=== PATIENT | female | born 1990 | race Caucasian/White ===

== ENCOUNTER 2021-05-21 13:33 | Emergency (ER) | payer OTHER ==
[2021-05-21 13:57] LABS: BASOPHIL 0.7 % (0-2); EOSINOPHIL 0.8 % (0-5); HCT 39.6 % (37.0-47.0); HGB 13.3 g/dl (12.5-16.0); MCH 29.7 pg (25.0-31.0); MCHC 33.6 g/dL (32.0-36.0); MCV 88.4 fL (78.0-100.0); MONOCYTE 8.2 % (0-12); MPV 9.5 fL (6.0-9.5); NRBC 0; PLT 222 K/uL (150-400); RBC 4.48 M/uL (4.20-5.40); RDW 12.6 % (11.5-14.0)
[2021-05-21 14:34] LABS: BUN/CREAT RATIO (CALC) 17.6 RATIO; CREATININE 0.68 mg/dL (0.51-0.95); POTASSIUM 3.8 mmol/L (3.5-5.1)
[2021-05-21] MEDS ORDERED: ATARAX25 MG PO (15:38)
[2021-05-21] MEDS ORDERED: AUGMENTIN 875-1 EACH PO (15:39)
== END 2021-05-21 16:21 | disposition home or self-care (01) ==
LOC: FER 13:33
PROVIDERS: Nurse Practitioner Family
DX: F41.0 Panic disorder [episodic paroxysmal anxiety] (principal); K04.7 Periapical abscess without sinus
CPT/HCPCS: 36415; 80048; 84443; 84484; 85025; 93005; J7030